=== PATIENT | female | born 2000 | race Caucasian/White ===

== ENCOUNTER 2021-01-20 14:21 | Outpatient (CLI) | payer OTHER | END 2021-01-20 19:27 | disposition other institution (70) | LOC: GENOP 14:21 | DX: O42.913 Preterm premature rupture of membranes, unspecified as to length of time between rupture and onset of labor, third trimester (principal); O99.891 Other specified diseases and conditions complicating pregnancy; R10.9 Unspecified abdominal pain; Z3A.34 34 weeks gestation of pregnancy | CPT/HCPCS: 51702; 76815; 83518; 96360; 96361; 96365; 96366; 96367; 96372; J0702; J3475; J7120 ==

== ENCOUNTER → 2021-07-27 | Outpatient (CLI) | payer OTHER | LOC: KOH-I 10:59 | DX: R10.11 Right upper quadrant pain (principal) | CPT/HCPCS: 76705 ==